=== PATIENT | female | born 1985 ===

== ENCOUNTER 2021-02-07 16:37 | Inpatient (IN) ==
[2021-02-07] MEDS ORDERED: 0.9 % Sodium Chloride 1,000 ML IVC ONE (17:05)
[2021-02-07 17:35] LABS: Basophils # 0.1 K/mcL (0.0-0.2); Basophils % 0.6 %; Eosinophils # 0.1 K/mcL (0.0-0.6); Eosinophils % 1.3 %; Hematocrit 49.7 % (35.3-44.9); Hemoglobin 15.9 g/dL (11.5-15.4); Immature Granulocytes % 0.5 % (0-4); Lymphocytes # 2.7 K/mcL (0.6-4.6); Lymphocytes % 26.1 %; Mean Corpuscular Hemoglobin 30.8 pg (28.0-33.3); Mean Corpuscular Volume 96.1 fL (83.0-100.0); Mean Platelet Volume 10.2 fL (9.4-12.4); Monocytes # 0.6 K/mcL (0.0-1.3); Monocytes % 5.6 %; Neutrophils # 6.9 K/mcL (1.6-8.9); Platelet Count 450 K/mcL (140-400); Red Blood Count 5.17 M/mcL (3.82-4.97); Red Cell Distribution Width 16.8 % (11.5-14.5); Segmented Neutrophils % 65.9 %; White Blood Count 10.5 K/mcL (4.3-11.1)
[2021-02-07] MEDS ORDERED: Isovue-370 500 ML BOTTLE IVP ONE (17:59)
[2021-02-07 18:06] LABS: BUN/Creatinine Ratio 10 (6-26); Blood Urea Nitrogen 7 mg/dL (6-20); Calcium 9.3 mg/dL (8.6-10.3); Carbon Dioxide 26 mEq/L (23-29); Chloride 95 mEq/L (98-107); Glucose 190 mg/dL (70-105); Osmolality,Calculated 285 (280-300); Potassium 3.1 mEq/L (3.5-5.1); Sodium 136 mEq/L (136-145); Troponin I < 0.03 ng/mL (< 0.04); eGFR For African Americans > 60 (> 60); eGFR For Non-African Americans > 60 (> 60)
[2021-02-07] MEDS ORDERED: Piperacillin/Tazobactam 3.375 GM in 0.9 % Sodium Chloride Mini Bag 100 ML IVPB ONE (18:08)
[2021-02-07] MEDS ORDERED: *HR* Heparin 5,000 UNIT/ML VIAL IVP ONE (19:39)
[2021-02-07] MEDS ORDERED: *HR* Heparin 5,000 UNIT/ML VIAL IVP PRN ×2 (19:39)
[2021-02-07 19:41] LABS: Bilirubin,Urine Negative (Negative); Blood,Urine Negative (Negative); Clarity,Urine Clear (Clear); Color,Urine Yellow (Yellow); Glucose,Urine (UA) Normal (Normal); Hyaline Casts,Urine Moderate per lpf (None Seen); Ketones,Urine Negative (Negative); Leukocyte Esterase,Urine Negative (Negative); Mucus,Urine Few per lpf (None-Few); Nitrite,Urine Negative (Negative); PH,Urine 5.5 pH Units (5.0-8.0); Protein,Urine 50 mg/dL (Neg-Trace); RBC,Urine 0-3 per hpf (0-3); Renal Epithelial Cells,Urine Few per hpf (None-Few); Specific Gravity,Urine 1.026 (1.010-1.025); Squamous Epithelial Cell,Urine Few per hpf (None-Few); Transitional Epi Cells,Urine Few per hpf (None-Few); Urobilinogen,Urine Normal (Normal)
[2021-02-07] MEDS ORDERED: Heparin 25,000UNIT/250ML 1/2NS 25,000 UNIT/250 ML IV.SOLN IVC SCH (19:45)
[2021-02-07] MEDS ORDERED: Ondansetron 4 MG/2 ML VIAL IVP PRN (20:37)
[2021-02-07] MEDS ORDERED: Naloxone 0.4 MG/ML INJ IVP PRN (20:37)
[2021-02-07] MEDS ORDERED: Acetaminophen 325 MG TABLET PO PRN (20:37)
[2021-02-07 21:04] LABS: Hematocrit 42.1 % (35.3-44.9); Mean Corpuscular HGB Conc 30.6 g/dL (31.6-35.5); Mean Corpuscular Hemoglobin 29.7 pg (28.0-33.3); Mean Corpuscular Volume 96.8 fL (83.0-100.0); Platelet Count 343 K/mcL (140-400); Red Blood Count 4.35 M/mcL (3.82-4.97); Red Cell Distribution Width 16.3 % (11.5-14.5); White Blood Count 10.2 K/mcL (4.3-11.1)
[2021-02-07 21:05] LABS: Hemoglobin 12.9 g/dL (11.5-15.4)
[2021-02-07 21:14] LABS: Heparin anti-factor XA UFH < 0.04 IU/mL (0.30-0.70); INR 1.4; Prothrombin Time 15.4 Seconds (9.4-12.1)
[2021-02-07] MEDS ORDERED: Perflutren Lipid Microsphere 1.3 ML in 0.9 % Sodium Chloride 8.7 ML IVP PRN (21:48)
[2021-02-07] MEDS ORDERED: Potassium Chloride Elixir 20 MEQ/15 ML UDC PO ONE (22:52)
[2021-02-07] MEDS ORDERED: *HR* LORazepam 1 MG TABLET PO ONE (23:23)
[2021-02-07] MEDS ORDERED: 0.9 % Sodium Chloride 1,000 ML IVC SCH (23:45)
[2021-02-08 00:09] LABS: Amphetamine Screen,Urine Negative ng/mL (Cutoff=1000); Barbiturate Screen,Urine Negative ng/mL (Cutoff=200); Benzodiazepines Screen,Urine Negative ng/mL (Cutoff=200); Cannabinoid Screen,Urine Positive ng/mL (Cutoff = 50); Cocaine Screen,Urine Negative ng/mL (Cutoff= 300); Opiate Screen,Urine Negative ng/mL (Cutoff=300); Phencyclidine Screen,Urine Negative ng/mL (Cutoff=25)
[2021-02-08 01:21] LABS: Hematocrit 45.4 % (35.3-44.9); Hemoglobin 13.9 g/dL (11.5-15.4); Mean Corpuscular HGB Conc 30.6 g/dL (31.6-35.5); Mean Corpuscular Hemoglobin 29.8 pg (28.0-33.3); Mean Corpuscular Volume 97.4 fL (83.0-100.0); Mean Platelet Volume 10.4 fL (9.4-12.4); Platelet Count 380 K/mcL (140-400); Red Blood Count 4.66 M/mcL (3.82-4.97); Red Cell Distribution Width 16.3 % (11.5-14.5); White Blood Count 10.9 K/mcL (4.3-11.1)
[2021-02-08 01:25] LABS: INR 1.3; Prothrombin Time 14.7 Seconds (9.4-12.1)
[2021-02-08 01:27] LABS: Activated Partial Thrombo Time 60.2 Seconds (26.0-36.0)
[2021-02-08 01:35] LABS: BUN/Creatinine Ratio 10 (6-26); Blood Urea Nitrogen 6 mg/dL (6-20); Calcium 8.2 mg/dL (8.6-10.3); Carbon Dioxide 27 mEq/L (23-29); Chloride 100 mEq/L (98-107); Glucose 98 mg/dL (70-105); Osmolality,Calculated 284 (280-300); Sodium 138 mEq/L (136-145); eGFR For African Americans > 60 (> 60); eGFR For Non-African Americans > 60 (> 60)
[2021-02-08] MEDS: Piperacillin/Tazobactam 3.375 GM in 0.9 % Sodium Chloride Mini Bag 100 ML IVPB SCH ×2 (02:31→10:58)
[2021-02-08] MEDS: Aspirin 325 MG TABLET PO SCH ×3 (08:42→20:54)
[2021-02-08] MEDS ORDERED: Potassium Chloride Elixir 20 MEQ/15 ML UDC PO ONE (08:57)
[2021-02-08] MEDS ORDERED: Perflutren Lipid Microsphere 1.3 ML in 0.9 % Sodium Chloride 8.7 ML IVP PRN (14:01)
[2021-02-08] MEDS: Apixaban 5 MG TABLET PO SCH ×2 (15:16→20:54)
[2021-02-08] MEDS: cefTRIAXone 2,000 MG in Water for inj. (sterile) 20 ML IVP SCH (16:08)
[2021-02-08] MEDS: Ampicillin 2,000 MG in 0.9 % Sodium Chloride Mini Bag 100 ML IVPB SCH ×2 (16:10→23:49)
[2021-02-08] MEDS ORDERED: Melatonin 3 MG TABLET PO PRN (19:38)
[2021-02-08] MEDS ORDERED: Acetaminophen 325 MG TABLET PO PRN (19:38)
[2021-02-08] MEDS ORDERED: polyethylene glycoL 3350 17 GM POWD.PACK PO PRN (19:38)
[2021-02-08] MEDS ORDERED: Albuterol 2.5 MG/3 ML NEBULIZER IH PRN (19:38)
[2021-02-08] MEDS: QUEtiapine Fumarate 25 MG TABLET PO SCH (20:54)
[2021-02-08] MEDS: Furosemide 20 MG TABLET PO SCH (20:55)
[2021-02-08] MEDS: Gabapentin 300 MG CAPSULE PO SCH (20:55)
[2021-02-08] MEDS: methocarbamoL 500 MG TABLET PO SCH (20:55)
[2021-02-08] MEDS: Sennosides/Docusate Sodium TABLET PO SCH (21:00)
[2021-02-09 01:30] LABS: Basophils # 0.1 K/mcL (0.0-0.2); Eosinophils # 0.2 K/mcL (0.0-0.6); Eosinophils % 2.6 %; Hematocrit 38.5 % (35.3-44.9); Immature Granulocytes % 0.3 % (0-4); Lymphocytes # 2.5 K/mcL (0.6-4.6); Lymphocytes % 34.3 %; Mean Corpuscular HGB Conc 30.6 g/dL (31.6-35.5); Mean Corpuscular Hemoglobin 29.8 pg (28.0-33.3); Mean Corpuscular Volume 97.2 fL (83.0-100.0); Mean Platelet Volume 10.2 fL (9.4-12.4); Monocytes # 0.5 K/mcL (0.0-1.3); Monocytes % 6.1 %; Neutrophils # 4.1 K/mcL (1.6-8.9); Nucleated Red Blood Cells 0.3 /100 WBC (0); Platelet Count 318 K/mcL (140-400); Red Blood Count 3.96 M/mcL (3.82-4.97); Red Cell Distribution Width 16.4 % (11.5-14.5); Segmented Neutrophils % 55.7 %; White Blood Count 7.3 K/mcL (4.3-11.1)
[2021-02-09 01:37] LABS: Hemoglobin 11.8 g/dL (11.5-15.4)
[2021-02-09 01:45] LABS: BUN/Creatinine Ratio 11 (6-26); Blood Urea Nitrogen 8 mg/dL (6-20); Calcium 8.2 mg/dL (8.6-10.3); Carbon Dioxide 20 mEq/L (23-29); Chloride 109 mEq/L (98-107); Glucose 104 mg/dL (70-105); Magnesium 1.8 mg/dL (1.6-2.6); Osmolality,Calculated 287 (280-300); Phosphorous 3.2 mg/dL (2.7-4.5); Potassium 3.4 mEq/L (3.5-5.1); Sodium 139 mEq/L (136-145); eGFR For African Americans > 60 (> 60); eGFR For Non-African Americans > 60 (> 60)
[2021-02-09] MEDS: Ampicillin 2,000 MG in 0.9 % Sodium Chloride Mini Bag 100 ML IVPB SCH ×4 (05:15→18:11)
[2021-02-09] MEDS: Furosemide 20 MG TABLET PO SCH ×2 (09:34→21:08)
[2021-02-09] MEDS: Apixaban 5 MG TABLET PO SCH ×2 (09:34→21:09)
[2021-02-09] MEDS: Aspirin 325 MG TABLET PO SCH ×3 (09:35→21:09)
[2021-02-09] MEDS: Gabapentin 300 MG CAPSULE PO SCH ×3 (09:35→21:09)
[2021-02-09] MEDS: Sennosides/Docusate Sodium TABLET PO SCH ×2 (09:40→21:10)
[2021-02-09] MEDS: methocarbamoL 500 MG TABLET PO SCH ×3 (09:49→21:09)
[2021-02-09] MEDS ORDERED: Ampicillin 2,000 MG in 0.9 % Sodium Chloride Mini Bag 100 ML IVPB SCH (12:45)
[2021-02-09] MEDS: cefTRIAXone 2,000 MG in Water for inj. (sterile) 20 ML IVP SCH (14:39)
[2021-02-09] MEDS: QUEtiapine Fumarate 25 MG TABLET PO SCH (21:09)
[2021-02-10] MEDS: Ampicillin 2,000 MG in 0.9 % Sodium Chloride Mini Bag 100 ML IVPB SCH ×4 (00:29→18:06)
[2021-02-10 01:49] LABS: Basophils # 0.1 K/mcL (0.0-0.2); Basophils % 0.9 %; Eosinophils # 0.1 K/mcL (0.0-0.6); Eosinophils % 1.7 %; Hematocrit 39.2 % (35.3-44.9); Hemoglobin 11.8 g/dL (11.5-15.4); Immature Granulocytes % 0.5 % (0-4); Lymphocytes # 2.1 K/mcL (0.6-4.6); Lymphocytes % 26.1 %; Mean Corpuscular HGB Conc 30.1 g/dL (31.6-35.5); Mean Corpuscular Hemoglobin 29.4 pg (28.0-33.3); Mean Corpuscular Volume 97.8 fL (83.0-100.0); Monocytes # 0.6 K/mcL (0.0-1.3); Monocytes % 7.4 %; Neutrophils # 5.2 K/mcL (1.6-8.9); Nucleated Red Blood Cells 0.2 /100 WBC (0); Platelet Count 318 K/mcL (140-400); Red Blood Count 4.01 M/mcL (3.82-4.97); Red Cell Distribution Width 16.9 % (11.5-14.5); Segmented Neutrophils % 63.4 %; White Blood Count 8.2 K/mcL (4.3-11.1)
[2021-02-10 02:06] LABS: BUN/Creatinine Ratio 12 (6-26); Blood Urea Nitrogen 9 mg/dL (6-20); Calcium 7.9 mg/dL (8.6-10.3); Carbon Dioxide 18 mEq/L (23-29); Chloride 108 mEq/L (98-107); Glucose 99 mg/dL (70-105); Osmolality,Calculated 287 (280-300); Potassium 3.7 mEq/L (3.5-5.1); Sodium 139 mEq/L (136-145); eGFR For African Americans > 60 (> 60); eGFR For Non-African Americans > 60 (> 60)
[2021-02-10] MEDS: Furosemide 20 MG TABLET PO SCH ×2 (08:20→19:56)
[2021-02-10] MEDS: Aspirin 325 MG TABLET PO SCH ×3 (08:20→19:57)
[2021-02-10] MEDS: methocarbamoL 500 MG TABLET PO SCH ×3 (08:20→20:01)
[2021-02-10] MEDS: Gabapentin 300 MG CAPSULE PO SCH ×3 (08:20→19:55)
[2021-02-10] MEDS: Apixaban 5 MG TABLET PO SCH ×2 (08:20→19:57)
[2021-02-10] MEDS: Sennosides/Docusate Sodium TABLET PO SCH ×2 (08:35→19:57)
[2021-02-10] MEDS: cefTRIAXone 2,000 MG in Water for inj. (sterile) 20 ML IVP SCH (14:06)
[2021-02-10] MEDS: hydrOXYzine pamoate 25 MG CAPSULE PO PRN (15:24)
[2021-02-10] MEDS: QUEtiapine Fumarate 25 MG TABLET PO SCH (19:56)
[2021-02-11] MEDS: Ampicillin 2,000 MG in 0.9 % Sodium Chloride Mini Bag 100 ML IVPB SCH ×5 (01:49→20:00)
[2021-02-11 05:55] LABS: Basophils # 0.1 K/mcL (0.0-0.2); Basophils % 0.9 %; Eosinophils # 0.2 K/mcL (0.0-0.6); Eosinophils % 2.2 %; Hematocrit 38.5 % (35.3-44.9); Immature Granulocytes % 0.6 % (0-4); Lymphocytes # 1.7 K/mcL (0.6-4.6); Lymphocytes % 21.7 %; Mean Corpuscular HGB Conc 31.2 g/dL (31.6-35.5); Mean Corpuscular Hemoglobin 30.6 pg (28.0-33.3); Mean Corpuscular Volume 98.2 fL (83.0-100.0); Mean Platelet Volume 10.3 fL (9.4-12.4); Monocytes # 0.5 K/mcL (0.0-1.3); Neutrophils # 5.2 K/mcL (1.6-8.9); Nucleated Red Blood Cells 0.3 /100 WBC (0); Platelet Count 295 K/mcL (140-400); Red Blood Count 3.92 M/mcL (3.82-4.97); Red Cell Distribution Width 17.2 % (11.5-14.5); Segmented Neutrophils % 67.6 %; White Blood Count 7.7 K/mcL (4.3-11.1)
[2021-02-11 06:15] LABS: BUN/Creatinine Ratio 11 (6-26); Blood Urea Nitrogen 8 mg/dL (6-20); Calcium 7.9 mg/dL (8.6-10.3); Carbon Dioxide 20 mEq/L (23-29); Chloride 108 mEq/L (98-107); Glucose 119 mg/dL (70-105); Osmolality,Calculated 285 (280-300); Potassium 3.4 mEq/L (3.5-5.1); Sodium 138 mEq/L (136-145); eGFR For African Americans > 60 (> 60); eGFR For Non-African Americans > 60 (> 60)
[2021-02-11] MEDS: methocarbamoL 500 MG TABLET PO SCH ×3 (07:56→19:55)
[2021-02-11] MEDS: Gabapentin 300 MG CAPSULE PO SCH ×3 (07:56→19:55)
[2021-02-11] MEDS: Furosemide 20 MG TABLET PO SCH ×2 (07:56→19:55)
[2021-02-11] MEDS: Aspirin 325 MG TABLET PO SCH ×3 (07:57→19:54)
[2021-02-11] MEDS: Apixaban 5 MG TABLET PO SCH ×2 (07:57→19:55)
[2021-02-11] MEDS: Sennosides/Docusate Sodium TABLET PO SCH ×2 (08:07→19:55)
[2021-02-11 13:03] LABS: Magnesium 1.8 mg/dL (1.6-2.6)
[2021-02-11] MEDS ORDERED: *HR* LORazepam 0.5 MG TABLET PO ONE (13:42)
[2021-02-11] MEDS: cefTRIAXone 2,000 MG in Water for inj. (sterile) 20 ML IVP SCH (14:06)
[2021-02-11] MEDS: QUEtiapine Fumarate 25 MG TABLET PO SCH (19:55)
[2021-02-12] MEDS: Ampicillin 2,000 MG in 0.9 % Sodium Chloride Mini Bag 100 ML IVPB SCH ×6 (01:20→20:28)
[2021-02-12] MEDS: cefTRIAXone 2,000 MG in Water for inj. (sterile) 20 ML IVP SCH ×2 (02:32→13:14)
[2021-02-12 05:34] LABS: Basophils # 0.1 K/mcL (0.0-0.2); Eosinophils # 0.3 K/mcL (0.0-0.6); Eosinophils % 4.5 %; Hematocrit 43.2 % (35.3-44.9); Hemoglobin 12.9 g/dL (11.5-15.4); Immature Granulocytes % 0.3 % (0-4); Lymphocytes # 2.1 K/mcL (0.6-4.6); Lymphocytes % 33.7 %; Mean Corpuscular HGB Conc 29.9 g/dL (31.6-35.5); Mean Corpuscular Volume 100.5 fL (83.0-100.0); Mean Platelet Volume 10.6 fL (9.4-12.4); Monocytes # 0.4 K/mcL (0.0-1.3); Monocytes % 6.3 %; Neutrophils # 3.4 K/mcL (1.6-8.9); Platelet Count 283 K/mcL (140-400); Red Cell Distribution Width 17.6 % (11.5-14.5); Segmented Neutrophils % 54.2 %; White Blood Count 6.2 K/mcL (4.3-11.1)
[2021-02-12 05:35] LABS: Nucleated Red Blood Cells 0.3 /100 WBC (0)
[2021-02-12 05:47] LABS: BUN/Creatinine Ratio 11 (6-26); Blood Urea Nitrogen 6 mg/dL (6-20); Calcium 8.3 mg/dL (8.6-10.3); Carbon Dioxide 25 mEq/L (23-29); Chloride 107 mEq/L (98-107); Glucose 84 mg/dL (70-105); Osmolality,Calculated 289 (280-300); Potassium 3.8 mEq/L (3.5-5.1); Sodium 141 mEq/L (136-145); eGFR For African Americans > 60 (> 60); eGFR For Non-African Americans > 60 (> 60)
[2021-02-12] MEDS: Gabapentin 300 MG CAPSULE PO SCH ×3 (09:03→20:28)
[2021-02-12] MEDS: Aspirin 325 MG TABLET PO SCH ×3 (09:03→20:28)
[2021-02-12] MEDS: Apixaban 5 MG TABLET PO SCH ×2 (09:04→20:29)
[2021-02-12] MEDS: Sennosides/Docusate Sodium TABLET PO SCH ×2 (09:04→21:25)
[2021-02-12] MEDS: methocarbamoL 500 MG TABLET PO SCH ×3 (09:05→20:29)
[2021-02-12] MEDS: Furosemide 20 MG TABLET PO SCH ×2 (09:05→20:29)
[2021-02-12] MEDS: hydrOXYzine pamoate 25 MG CAPSULE PO PRN (15:22)
[2021-02-12] MEDS: QUEtiapine Fumarate 25 MG TABLET PO SCH (20:29)
[2021-02-13] MEDS: Ampicillin 2,000 MG in 0.9 % Sodium Chloride Mini Bag 100 ML IVPB SCH ×6 (00:34→21:47)
[2021-02-13] MEDS: cefTRIAXone 2,000 MG in Water for inj. (sterile) 20 ML IVP SCH ×2 (01:57→13:48)
[2021-02-13 02:16] LABS: Basophils # 0.1 K/mcL (0.0-0.2); Basophils % 1.1 %; Eosinophils # 0.2 K/mcL (0.0-0.6); Eosinophils % 3.7 %; Hematocrit 37.2 % (35.3-44.9); Immature Granulocytes % 0.3 % (0-4); Mean Corpuscular HGB Conc 30.4 g/dL (31.6-35.5); Mean Corpuscular Hemoglobin 30.3 pg (28.0-33.3); Mean Corpuscular Volume 99.7 fL (83.0-100.0); Mean Platelet Volume 10.8 fL (9.4-12.4); Monocytes # 0.4 K/mcL (0.0-1.3); Monocytes % 7.1 %; Neutrophils # 3.4 K/mcL (1.6-8.9); Platelet Count 275 K/mcL (140-400); Red Blood Count 3.73 M/mcL (3.82-4.97); Red Cell Distribution Width 17.5 % (11.5-14.5); Segmented Neutrophils % 55.8 %; White Blood Count 6.2 K/mcL (4.3-11.1)
[2021-02-13 02:17] LABS: Hemoglobin 11.3 g/dL (11.5-15.4)
[2021-02-13 02:25] LABS: BUN/Creatinine Ratio 14 (6-26); Blood Urea Nitrogen 8 mg/dL (6-20); Carbon Dioxide 21 mEq/L (23-29); Chloride 109 mEq/L (98-107); Glucose 81 mg/dL (70-105); Osmolality,Calculated 287 (280-300); Potassium 4.1 mEq/L (3.5-5.1); Sodium 140 mEq/L (136-145); eGFR For African Americans > 60 (> 60); eGFR For Non-African Americans > 60 (> 60)
[2021-02-13] MEDS: Aspirin 325 MG TABLET PO SCH ×3 (08:28→21:47)
[2021-02-13] MEDS: Furosemide 20 MG TABLET PO SCH ×2 (08:29→21:46)
[2021-02-13] MEDS: Gabapentin 300 MG CAPSULE PO SCH ×3 (08:29→21:46)
[2021-02-13] MEDS: Apixaban 5 MG TABLET PO SCH ×2 (08:29→21:47)
[2021-02-13] MEDS: methocarbamoL 500 MG TABLET PO SCH ×3 (08:29→21:46)
[2021-02-13] MEDS: Sennosides/Docusate Sodium TABLET PO SCH ×2 (08:30→21:50)
[2021-02-13] MEDS: hydrOXYzine pamoate 25 MG CAPSULE PO PRN (14:39)
[2021-02-13] MEDS: QUEtiapine Fumarate 25 MG TABLET PO SCH (21:46)
[2021-02-14] MEDS: Ampicillin 2,000 MG in 0.9 % Sodium Chloride Mini Bag 100 ML IVPB SCH ×6 (00:48→20:52)
[2021-02-14] MEDS: cefTRIAXone 2,000 MG in Water for inj. (sterile) 20 ML IVP SCH ×2 (02:41→14:34)
[2021-02-14] MEDS: Aspirin 325 MG TABLET PO SCH ×3 (09:42→21:09)
[2021-02-14] MEDS: Furosemide 20 MG TABLET PO SCH ×2 (09:43→21:10)
[2021-02-14] MEDS: Apixaban 5 MG TABLET PO SCH ×2 (09:43→21:09)
[2021-02-14] MEDS: Gabapentin 300 MG CAPSULE PO SCH ×3 (09:45→21:10)
[2021-02-14] MEDS: methocarbamoL 500 MG TABLET PO SCH ×3 (09:46→21:10)
[2021-02-14] MEDS: Sennosides/Docusate Sodium TABLET PO SCH ×2 (09:47→21:10)
[2021-02-14] MEDS: hydrOXYzine pamoate 25 MG CAPSULE PO PRN (09:59)
[2021-02-14] MEDS: QUEtiapine Fumarate 25 MG TABLET PO SCH (21:10)
[2021-02-15] MEDS: Ampicillin 2,000 MG in 0.9 % Sodium Chloride Mini Bag 100 ML IVPB SCH ×7 (00:40→23:44)
[2021-02-15] MEDS: cefTRIAXone 2,000 MG in Water for inj. (sterile) 20 ML IVP SCH ×2 (01:32→14:23)
[2021-02-15] MEDS: Gabapentin 300 MG CAPSULE PO SCH ×3 (09:29→20:20)
[2021-02-15] MEDS: Furosemide 20 MG TABLET PO SCH ×2 (09:29→20:20)
[2021-02-15] MEDS: Aspirin 325 MG TABLET PO SCH ×3 (09:30→20:20)
[2021-02-15] MEDS: Apixaban 5 MG TABLET PO SCH ×2 (09:30→20:20)
[2021-02-15] MEDS: methocarbamoL 500 MG TABLET PO SCH ×3 (09:30→20:20)
[2021-02-15] MEDS: Sennosides/Docusate Sodium TABLET PO SCH ×2 (09:38→20:20)
[2021-02-15] MEDS: QUEtiapine Fumarate 25 MG TABLET PO SCH (20:20)
[2021-02-16] MEDS: cefTRIAXone 2,000 MG in Water for inj. (sterile) 20 ML IVP SCH ×2 (00:20→14:08)
[2021-02-16] MEDS: Ampicillin 2,000 MG in 0.9 % Sodium Chloride Mini Bag 100 ML IVPB SCH ×6 (04:29→23:41)
[2021-02-16] MEDS: Sennosides/Docusate Sodium TABLET PO SCH ×2 (07:48→20:47)
[2021-02-16] MEDS: Aspirin 325 MG TABLET PO SCH ×3 (07:48→20:45)
[2021-02-16] MEDS: Gabapentin 300 MG CAPSULE PO SCH ×3 (07:49→20:46)
[2021-02-16] MEDS: Apixaban 5 MG TABLET PO SCH ×2 (07:49→20:46)
[2021-02-16] MEDS: Furosemide 20 MG TABLET PO SCH ×2 (07:49→20:46)
[2021-02-16] MEDS: methocarbamoL 500 MG TABLET PO SCH ×3 (07:49→20:46)
[2021-02-16] MEDS: QUEtiapine Fumarate 25 MG TABLET PO SCH (20:46)
[2021-02-17] MEDS: cefTRIAXone 2,000 MG in Water for inj. (sterile) 20 ML IVP SCH ×2 (02:42→13:41)
[2021-02-17] MEDS: Ampicillin 2,000 MG in 0.9 % Sodium Chloride Mini Bag 100 ML IVPB SCH ×4 (02:43→16:34)
[2021-02-17] MEDS: Aspirin 325 MG TABLET PO SCH ×2 (08:31→13:41)
[2021-02-17] MEDS: Apixaban 5 MG TABLET PO SCH (08:32)
[2021-02-17] MEDS: Gabapentin 300 MG CAPSULE PO SCH ×2 (08:32→13:41)
[2021-02-17] MEDS: methocarbamoL 500 MG TABLET PO SCH ×2 (08:32→13:41)
[2021-02-17] MEDS: Furosemide 20 MG TABLET PO SCH (08:32)
[2021-02-17] MEDS: Sennosides/Docusate Sodium TABLET PO SCH (08:34)
[2021-02-17 10:09] LABS: Hematocrit 41.3 % (35.3-44.9); Hemoglobin 12.4 g/dL (11.5-15.4); Mean Corpuscular Hemoglobin 29.9 pg (28.0-33.3); Mean Corpuscular Volume 99.5 fL (83.0-100.0); Mean Platelet Volume 10.5 fL (9.4-12.4); Platelet Count 308 K/mcL (140-400); Red Blood Count 4.15 M/mcL (3.82-4.97); Red Cell Distribution Width 17.6 % (11.5-14.5); White Blood Count 8.3 K/mcL (4.3-11.1)
[2021-02-17 10:20] LABS: BUN/Creatinine Ratio 8 (6-26); Blood Urea Nitrogen 5 mg/dL (6-20); Calcium 8.3 mg/dL (8.6-10.3); Carbon Dioxide 23 mEq/L (23-29); Chloride 104 mEq/L (98-107); Glucose 99 mg/dL (70-105); Osmolality,Calculated 285 (280-300); Potassium 3.9 mEq/L (3.5-5.1); Sodium 139 mEq/L (136-145); eGFR For African Americans > 60 (> 60); eGFR For Non-African Americans > 60 (> 60)
[2021-02-17 11:02] VITALS: PULSE 80; TEMP 98.2
[2021-02-17 15:28] VITALS: BP 114/70; O2SAT 93
[2021-02-17 15:56] LABS: Adenovirus Not Detected (Not Detect); Bordetella Pertussis Not Detected (Not Detect); Chlamydophila pneumoniae Not Detected (Not Detect); Coronavirus 229E Not Detected (Not Detect); Coronavirus HKU1 Not Detected (Not Detect); Coronavirus NL63 Not Detected (Not Detect); Coronavirus OC43 Not Detected (Not Detect); Human Metapneumovirus Not Detected (Not Detect); Human Rhinovirus/Enterovirus Not Detected (Not Detect); Influenza A Subtype 2009 H1 Not Detected (Not Detect); Influenza B Not Detected (Not Detect); Mycoplasma pneumoniae Not Detected (Not Detect); Parainfluenza Virus 1 Not Detected (Not Detect); Parainfluenza Virus 2 Not Detected (Not Detect); Parainfluenza Virus 3 Not Detected (Not Detect); Parainfluenza Virus 4 Not Detected (Not Detect); Respiratory Syncytial Virus Not Detected (Not Detect); SARS-CoV-2 Not Detected (Not Detect)
== END 2021-02-17 17:36 | disposition short-term general hospital (02) | DRG 134 ==
LOC: EMEROOARM 16:37 → 3BNU 16:37 → SUATTDRO 20:22 → 3BNU 21:20 → SUATTDRO 02-08 15:00
PROVIDERS: ADMIT Student in an Organized Health Care Education/Training Program; ATTEND Registered Nurse